=== PATIENT | female | born 1960 | race African-American/Black ===

== ENCOUNTER → 2019-05-29 | Day surgery (SDC) | payer OTHER ==
[~2019-05-29] VITALS: Ht 165.1 cm; Wt 103.0 kg
[~2019-05-29] MED LIST: ASA5UEC PO; ASPIR 8181 MG PO; IBUPROFEN 600600 M1 PO; LASIX 40 MG TAB40 M2 PO; LIPITOR40 MG PO; PERCOCET 7.5-31 EACH PO
--- NOTE | ~2019-05-29 | O ---
[facility] [place] [address] OPERATIVE REPORT Name: [facility] Room #: REG [facility]#: [id number] Admission: 05/29/19 Attend Phys: David Anderson MD Discharge: Date of : 62 Report #: [id number] THIS REPORT FOR: //name// CC: SHERLYN Anderson Physician staff DATE OF SERVICE: 05/29/2019 PREOPERATIVE DIAGNOSIS: Left foot flatfoot. POSTOPERATIVE DIAGNOSIS: Left foot flatfoot. PROCEDURE: Left foot triple arthrodesis. SURGEON: Dr. David Anderson. TURFGRASS MANAGEMENT PROFESSOR: None. ANESTHESIA: General. ESTIMATED BLOOD LOSS: Minimal. DRAINS: No drains. TOURNIQUET TIME: 75 minutes. DESCRIPTION OF PROCEDURE: The patient was brought to the operating room where she was placed under general anesthesia. Once under adequate general anesthesia, her left lower extremity was prepped and draped in sterile manner. The extremity was elevated, exsanguinated, tourniquet placed 300 mmHg. A lateral incision over the sinus tarsi was then made. This was dissected down to the extensor digitorum brevis, which was then elevated off of the calcaneocuboid and subtalar joints. Exposure of each of the joints was then achieved. These were then prepared utilizing curettes, osteotomes and a margarito to good bleeding subchondral bone. We then proceeded dorsally and a 4 cm incision was made over the talonavicular joint. Dissection was carried down to the joint itself. The incision was made between the extensor hallucis longus and anterior tibialis tendon. Exposure was made of the joint and this joint was prepared in a similar fashion utilizing curettes, osteotomes and a margarito to remove any cartilage and to get bleeding subchondral bone. Subsequent to this, Signafuse allograft was then placed into all three of the joints and subsequent fixation across the joints was achieved with two 7.3 mm cannulated screws placed from the dorsal talus to the calcaneus and 3 screws in each across the calcaneocuboid and talonavicular joints respectively. Excellent fixation and alignment was achieved as verified on fluoroscopy. The wounds were irrigated copiously and closed with 2-[address] [address] OPERATIVE REPORT Name: [facility] Room #: REG [facility].#: [id number] Admission: 05/29/19 Attend Phys: David Anderson MD Discharge: Date of : 62 Report #: [id number] in the deep and subcutaneous tissues and fernando for the skin. The wounds were dressed with Xeroform, 4 x 4s, and sterile soft compressive dressing with a short leg cast was placed. Tourniquet was let down at 75 minutes. Toes were pink and warm with good capillary refill. There were no complications from the procedure. The patient tolerated the procedure well and went to recovery room without incident. By: 1526 [id number] David Anderson MD /mp
[2019-05-29 12:05] LABS: CALCIUM 9.7 mg/dL (8.5-10.1); POTASSIUM 3.3 mmol/L (3.5-5.1)
[2019-05-29 12:44] VITALS: BP 135/70
--- NOTE | 2019-05-29 15:15 | EKG ---
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: brett : 1960 Requested By: David Anderson Order Number: [id number] MD: Salvatore Collier Measurements Intervals [place] Rate: 60 P: 57 DE: 171 QRS: 55 QRSD: 88 T: 85 QT: 476 QTc: 476 Interpretive Statements Sinus rhythm Abnormal T, consider ischemia, anterior leads No previous ECG available for comparison Electronically Signed On 05-29-2019 15:15:35 CDT by Salvatore Collier [email or web address] <ELECTRONICALLY SIGNED> By: Salvatore Collier MD, [facility] 05/29/19 1515 1155 1155 Salvatore Collier MD, FACC /EPI
[2019-05-29 15:39] VITALS: BP 135/70
== END | disposition home or self-care (01) ==
LOC: OR 10:49
PROVIDERS: Orthopaedic Surgery Foot and Ankle Surgery
DX: M21.42 Flat foot [pes planus] (acquired), left foot (principal); I10 Essential (primary) hypertension; Z98.890 Other specified postprocedural states; E78.00 Pure hypercholesterolemia, unspecified; K21.9 Gastro-esophageal reflux disease without esophagitis; F17.210 Nicotine dependence, cigarettes, uncomplicated; Z79.899 Other long term (current) drug therapy; Z79.82 Long term (current) use of aspirin
CPT/HCPCS: 50010; 50101; 50386; 50679; 51412; 53341; 53400; 56524; 57091; 57180; 57213; 62110; 62900; 70005